=== PATIENT | male | born 1945 | race Caucasian/White ===

== ENCOUNTER 2017-11-24 08:05 | Inpatient (IN) | payer OTHER, MEDICARE ==
--- NOTE | 2017-11-24 07:16 | PDHPUP ---
History & Physical Update H&P update statement: This history and physical update is based on an assessment of the patient which was completed after admission or registration (within 24 hours), but prior to the surgery/procedure. H&P update: H&P reviewed & patient examined, no change in patient's condition since H&P completed
[~2017-11-24 08:05] MED LIST: ROPIVACAINE 0.2% 80 MG, EPINEPHrine 0.2 MG, KETOROLAC TROMETHAMINE 30 MG in SYRINGE 0 ML IU ONE; TRANEXAMIC ACID 3,000 MG in NS (SYRINGE) 50 ML IRR ONE
[2017-11-24] MEDS ORDERED: TRANEXAMIC ACID 3,000 MG/50 ML BAG IRR ONE (08:08)
[2017-11-24] MEDS ORDERED: DEXAMETHASONE 4 MG/ML VIAL IVP ONE (08:31)
[2017-11-24] MEDS ORDERED: FAMOTIDINE 20 MG TAB PO ONE (08:31)
[2017-11-24] MEDS ORDERED: ceFAZolin 2 GM/DEXTROSE 100 ML IV ONE (08:31)
[2017-11-24] MEDS ORDERED: ACETAMINOPHEN 325 MG TAB PO ONE (08:31)
[2017-11-24] MEDS ORDERED: LR 1,000 ML IV ONE (08:36)
[2017-11-24] MEDS ORDERED: MIDAZOLAM 2 MG/2 ML VIAL IVP ONE (09:44)
--- NOTE | 2017-11-24 09:44 | PDANEPAE ---
ANE History of Present Illness 72 yo for sim ANE Past Medical History - Cardiovascular History Hx Hypertension: No Hx Arrhythmias: No Hx Chest Pain: No Hx Coronary Artery / Peripheral Vascular Disease: No Hx CHF / Valvular Disease: No Hx Palpitations: No - Pulmonary History Hx COPD: No Hx Asthma/Reactive Airway Disease: No Hx Recent Upper Respiratory Infection: No Hx Oxygen in Use at Home: No Hx Sleep Apnea: No Sleep Apnea Screening Result - Last Documented: Negative Pulmonary History Comment: PNEUMONIA 3 YRS AGO - Neurologic History Hx Cerebrovascular Accident: No Hx Seizures: No Hx Dementia: No - Endocrine History Hx Diabetes: No - Renal History Hx Renal Disorders: No - Liver History Hx Hepatic Disorders: No - Neurological & Psychiatric Hx Hx Neurological and Psychiatric Disorders: No - Cancer History Hx Cancer: No Cancer History Comment: PROSTATE TXD W/RADIATION - GI History Hx Gastrointestinal Disorders: No - Other Health History Other Health History: NEG - Chronic Pain History Chronic Pain: Yes (R HIP PAIN) - Surgical History Prior Surgeries: L KNEE FX REPAIR. COLONOSCOPY ANE Review of Systems Review of Systems: - Exercise capacity METS (RN): 6 METS ANE Patient History - Allergies Allergies/Adverse Reactions: No Known Allergies Allergy (Verified 11/08/17 10:20) - Home Medications Home medications: home medication list seen and reviewed Home Medications: Aspirin [Aspirin 81mg (*)] 81 mg PO DAILY 01/24/15 [Last Taken 11/17/17] Rosuvastatin Calcium [Crestor 20mg (*)] 1 tab PO HS 01/24/15 [Last Taken ] [place]-3 Fatty Acids [Fish Oil 1000 mg (*)] 2,000 mg PO DAILY 11/08/17 [Last Taken 11/17/17] Naproxen Sodium [Aleve 220 MG (*)] 220 mg PO BID PRN 11/11/17 [Last Taken ] - NPO status NPO Status: no food or drink >8 hours NPO Since - Liquids (Date): 11/24/17 NPO Since - Solids (Date): 11/23/17 - Anes Hx Anes Hx: no prior problems - Smoking Hx Smoking Status: Former smoker - Family Anes Hx Family Hx Anesthesia Complications: NEG ANE Labs/Vital Signs - Vital Signs Blood Pressure: 134/79 Heart Rate: 51 Respiratory Rate: 16 O2 Sat (%): 96 Height: 5 ft 10 in Weight: 77.111 kg ANE Physical Exam - Airway Neck exam: FROM Mallampati Score: Class 2 - Pulmonary Pulmonary: no respiratory distress - Cardiovascular Cardiovascular: regular rate and rhythym - ASA Status ASA Status: II ANE Anesthesia Plan Anesthesia Plan: spinal
[2017-11-24] MEDS ORDERED: MIDAZOLAM 2 MG/2 ML VIAL ONE (09:55)
[2017-11-24] MEDS ORDERED: PROPOFOL/EMULSION 500 MG/50 ML BOTTLE IV ONE ×2 (09:57→11:01)
[2017-11-24] MEDS ORDERED: LIDOCAINE 2% 100 MG/5 ML SYR ONE (10:32)
[2017-11-24] MEDS ORDERED: PROMETHAZINE HCL 25 MG/ML INJ IVP PRN (11:23)
[2017-11-24] MEDS ORDERED: diphenhydrAMINE 25 MG CAP PO PRN (11:23)
[2017-11-24] MEDS ORDERED: TEMAZEPAM 15 MG CAP PO PRN (11:23)
[2017-11-24] MEDS ORDERED: CYCLOBENZAPRINE 10 MG TAB PO PRN (11:23)
[2017-11-24] MEDS ORDERED: BISACODYL 10 MG SUPP PR PRN (11:23)
[2017-11-24] MEDS ORDERED: oxyCODONE IR 5 MG TAB PO PRN (11:23)
[2017-11-24] MEDS ORDERED: DIPHENOXYLATE/ATROPINE LOMOTIL 1 TAB PO PRN (11:23)
[2017-11-24] MEDS ORDERED: METOCLOPRAMIDE 10 MG/2 ML VIAL IVP PRN (11:23)
[2017-11-24] MEDS ORDERED: ONDANSETRON 4 MG/2 ML VIAL IVP PRN ×2 (11:23→11:32)
[2017-11-24] MEDS ORDERED: ONDANSETRON DISINTEGRATING 4 MG TAB PO PRN (11:23)
[2017-11-24] MEDS ORDERED: LACTULOSE 20 GM/30 ML UDCUP PO PRN (11:23)
[2017-11-24] MEDS ORDERED: PROMETHAZINE HCL 25 MG SUPPR PR PRN (11:23)
[2017-11-24] MEDS ORDERED: POLYETHYLENE GLYCOL 3350 17 GM PKT PO PRN (11:23)
[2017-11-24] MEDS ORDERED: MAGNESIUM HYDROXIDE 30 ML UDCUP PO PRN (11:23)
--- NOTE | 2017-11-24 11:23 | POSTOPPROG ---
Post Op Note Date of Operation: 11/24/17 Surgeon: Rodrigo Denton Beam Warper: desiree denton Anesthesiologist: dr. bhagat Anesthesia: Spinal Pre-op Diagnosis: right hip OA Post-op Diagnosis: same Indication: right hip pain Procedure: R DUNCAN ant approach Findings: severe hip OA Inf/Abcess present in the surg proc area at time of surgery?: No EBL: 100-500
[2017-11-24] MEDS ORDERED: LR 1,000 ML IV SCH (11:30)
[2017-11-24] MEDS ORDERED: fentaNYL 100 MCG/2 ML INJ IVP PRN (11:32)
[2017-11-24] MEDS ORDERED: NALOXONE HCL 0.4 MG/ML INJ IVP PRN (11:32)
[2017-11-24] MEDS ORDERED: HYDROmorphONE/DILAUDID 1 MG/ML INJ IVP PRN (11:32)
--- NOTE | 2017-11-24 11:33 | POSTANESTH ---
Post Anesthetic Evaluation Cardiovascular Status: Normal, Stable Respiratory Status: Tx Decrease in SpO2 Level of Consciousness/Mental Status: Can Participate in Eval Pain Control: Adequate, Prn Tx Ordered Nausea/Vomiting Control: Adequate, Prn Tx Ordered Complications Possibly Related to Anesthesia: None Noted
[2017-11-24] MEDS: ACETAMINOPHEN 325 MG TAB PO SCH ×2 (13:26→17:58)
--- NOTE | 2017-11-24 13:42 | PDMN ---
Medical Necessity Medical necessity: [facility] IP only surgery; cpt 75862 R DUNCAN
[2017-11-24] MEDS: ceFAZolin 2 GM/DEXTROSE 100 ML IV SCH (17:58)
[2017-11-24] MEDS: FAMOTIDINE 20 MG TAB PO SCH (20:16)
[2017-11-24] MEDS: SENNOSIDES/DOCUSATE SODIUM TAB PO SCH (20:16)
[2017-11-24] MEDS: ASPIRIN 81 MG CHEWABLE TAB PO SCH (20:17)
[2017-11-24] MEDS ORDERED: ROSUVASTATIN CALCIUM 20 MG TAB PO SCH (21:00)
[2017-11-25] MEDS: ACETAMINOPHEN 325 MG TAB PO SCH ×2 (00:45→06:20)
[2017-11-25] MEDS: ceFAZolin 2 GM/DEXTROSE 100 ML IV SCH (00:46)
[2017-11-25 07:18] VITALS: BP 116/67
[2017-11-25] MEDS: ASPIRIN 81 MG CHEWABLE TAB PO SCH (09:15)
[2017-11-25] MEDS: SENNOSIDES/DOCUSATE SODIUM TAB PO SCH (09:15)
[2017-11-25] MEDS: FAMOTIDINE 20 MG TAB PO SCH (09:15)
--- NOTE | 2017-11-25 09:36 | SOAPPROG ---
SOAP Progress Note Assessment/Plan: Assessment: Patient is doing well POD 1 s/p R DUNCAN Pain management: pain is well controlled on oral pain meds. VTE ppx: recommend aspirin 81 mg BID for 4 weeks, cont KATHY and SCDs Anemia: level is expected initially postop. Asymptomatic. Continue to monitor D/c planning: d/c to home today pending release from PT Plan: 11/25/17 09:35 Subjective: Naldo is doing well, denies SOB, chest pain and N/V Objective: Vital Signs Temp Pulse Resp BP Pulse Ox 37.1 C 55 L 14 116/67 94 11/25/17 07:17 11/25/17 07:17 11/25/17 07:17 11/25/17 07:17 11/25/17 07:17 Laboratory Results 11/25/17 04:55 11/24/17 11/25/17 11/26/17 05:59 05:59 05:59 Intake Total 2450 Output Total 2200 200 Balance 250 -200 RLE: incision dressing is clean and dry, NVI, +pf/df ICD10 Worksheet Patient Problems: Problems Problem Status Onset Primary localized osteoarthritis of right hip Acute Hyponatremia Acute Pneumonia Acute
--- NOTE | 2017-11-25 10:56 | GDS ---
[f rep st] DISCHARGE SUMMARY ADMISSION DIAGNOSIS: Right hip osteoarthritis. DISCHARGE DIAGNOSIS: Right hip osteoarthritis. PROCEDURE: Right total hip arthroplasty. VTE PROPHYLAXIS: Recommend aspirin 81 mg twice daily for 4 weeks. BRIEF DESCRIPTION OF HOSPITAL STAY: Patient was admitted for an elective joint arthroplasty. The pa tejas tolerated the procedure well and has passed physical therapy. The patient was given appropriat e antibiotic prophylaxis and venous thromboembolism prophylaxis. The patient's pain was well control led on oral pain medication, patient was holding down food, and had urinated. Decision was made to d ischarge the patient. The patient was given post-operative prescriptions pre-operatively. PLAN: Follow up as scheduled in Dr. Juarez's office December 16 at 10 a.m. /[id number]/MODL
--- NOTE | 2017-11-25 11:06 | GOP ---
[f rep st] OPERATIVE REPORT DATE OF OPERATION: 11/24/2017 SURGEON: Brandy Juarez MD VENETIAN BLIND CLEANER AND REPAIRER: SEAN Adkins. ANESTHESIA: Spinal. PREOPERATIVE DIAGNOSIS: Right hip osteoarthritis. POSTOPERATIVE DIAGNOSIS: Right hip osteoarthritis. PROCEDURE PERFORMED: Right total hip arthroplasty with x-ray. FINDINGS: ESTIMATED BLOOD LOSS: 200 cc. INDICATIONS: The patient has progressively worsening arthritis of the hip which has failed medical m anagement. The patient understands the treatment options including continued non-operative care and has selected surgical intervention. The patient has decided to undergo total hip arthroplasty via th e direct anterior approach, understanding the risks of the procedure including, but not limited to, n eurovascular injury, infection, persistent pain, component wear and loosening, deep venous thrombosis , pulmonary embolism, limb length inequality, hip instability (including dislocation), and intra-oper ative fractures. DESCRIPTION OF PROCEDURE: After proper identification of the patient including verification and negar ing the surgical site, the patient was brought to the operating room and placed in the supine positio n. All bony prominences were well padded. Anesthesia was induced without complication and intraveno us prophylactic antibiotics were administered prior to skin incision. The operative leg was placed in the Trumpf Arch table extension and the well leg in a [place] leg ho lder. The patient was prepped and draped in the usual sterile fashion. The C-arm was draped for int ra-operative fluoroscopy to check acetabular position, femoral component position including leg lengt h and femoral offset. Attention was then drawn to surgical exposure of the hip. An incision was made with a #10 [place] r blade starting 3 cm lateral and 3 cm distal to the anterior superior iliac spine measuring 8-10 cm and coursing distally toward the greater trochanter. The skin and subcutaneous tissues were divided sharply down to the fascia chava. The fascia hcava was incised in line with the skin incision exposing the underlying tensor fascia chava muscle. The muscle was bluntly elevated from the fascia and the f irst extracapsular Cobra retractor was placed laterally at the junction of the superior femoral neck and greater trochanter. The lateral femoral circumflex vessels were identified, cauterized, and divi ded with the Aquamantys bipolar cautery. The deep investing fascia of the TFL was divided to allow p evan mobilization of the muscle preventing damage during the retraction. The reflected head of the rectus femoris muscle was elevated off the anterior hip capsule and a medial Cobra retractor was plac ed just proximal to the lesser trochanter. The anterior capsulotomy was made sharply from the superolateral acetabulum to the saddle junction of the superior femoral neck and greater trochanter, then coursing inferomedial towards the lesser troc hanter. The retractors were then placed in the intracapsular position for femoral neck osteotomy. C orresponding to pre-operative templating, the osteotomy was made with the oscillating saw carefully p rotecting the greater trochanter and soft tissues. The femoral head was removed from the acetabulum with a corkscrew and confirmed to be severely arthritic with exposed bone, deformity and osteophytes. Similar findings were confirmed in the acetabulum. The Arch table extension was then placed in 40 degrees external rotation. Attention was then drawn to the acetabular preparation. After placement of the anterior and posterio r Cobra retractors outside the labrum and intracapsular, the circumferential labrum was removed sharp ly. The foveal contents were then removed and hemostasis obtained with cautery. The first reamer selected was sized using the removed femoral head. Reaming began with medialization and then commenced in 2 mm increments at 45 degrees of abduction and 15 degrees of anteversion using fluoroscopic navigation. Reaming ceased 1 mm less than the definitive acetabular component and rogers esponded to the pre-operative templating. The final acetabular component was inserted using fluorosc opy to achieve proper orientation yielding excellent purchase and stability in the acetabulum. The f inal acetabular liner was then placed and its seating confirmed. Attention was then turned to the femur. The Arch table extension was placed in extension and adducti on, delivering the osteotomized femoral neck into the wound. A 2-pronged femoral elevator was placed at the calcar and another at the tip of the greater trochanter. The posterolateral capsule was rele ased with cautery allowing mobilization of the femur lateral and anterior for preparation. The exter nal rotators were visualized and preserved. A curette and rongeur were used to open the starting poi nt for broaching. Serial broaching started with the #0 broach and ended with the broach that exhibit ed excellent fit in the proximal femur. A change in pitch during mallet strikes was accompanied by t he inability to advance the broach any further. The trial reduction was performed and fluoroscopic n avigation was utilized to check limb length. Adjustments were made to equalize limb length according ly. After the final trials were accepted they were removed and the wound was copiously lavaged. The femo ral component was seated to the same depth as the final broach and the femoral head was impacted onto the clean trunnion. The hip was then reduced for the final time and once more fluoroscopy was used to check that limb length equality was achieved. The wound was irrigated and closed in layers, the fascia chava with 2-0 Quill, the subcutaneous tissue with 2-0 Quill, and the skin with Dermabond. Sterile dressings were applied. Final sharps and spon ge counts were accurate. The patient was then transferred to a hospital bed and brought to the [facility] room in stable condition. IMPLANTS: Accolade II size 7 at 127. Acetabular component is 58 mm Trident II. Liner is a Trident X3, 36 mm. Head is Biolox Delta 36 mm, -2.5. /[id number]/MODL
== END 2017-11-25 10:50 | disposition home or self-care (01) | DRG 470 ==
LOC: F3N 08:05
PROVIDERS: ADMIT Orthopaedic Surgery; ATTEND Orthopaedic Surgery
PROC: 0SR904Z Replacement of Right Hip Joint with Ceramic on Polyethylene Synthetic Substitute, Open Approach (ICD-10-PCS; principal; 2017-11-24 10:15)
DX: M16.11 Unilateral primary osteoarthritis, right hip (principal); Z87.891 Personal history of nicotine dependence; Z85.46 Personal history of malignant neoplasm of prostate
CPT/HCPCS: 97110-GP; 97116-GP; 97161-GP; G8978-GP-CI; G8979-GP-CI; G8980-GP-CI; J0171; J0690; J1100; J1885; J2001; J2250; J2704; J2795

== ENCOUNTER 2018-09-06 07:38 | Emergency (ER) | payer OTHER, MEDICARE ==
[2018-09-06] MEDS ORDERED: NS 1,000 ML IV ONE (07:52)
[2018-09-06] MEDS ORDERED: DEXAMETHASONE 10 MG/ML VIAL IVP ONE (07:52)
[2018-09-06] MEDS ORDERED: KETOROLAC 30 MG/1 ML SDV IVP ONE (07:52)
[2018-09-06] MEDS ORDERED: KETOROLAC 30 MG/1 ML SDV ONE (07:53)
[2018-09-06] MEDS ORDERED: DEXAMETHASONE 10 MG/ML VIAL ONE (07:53)
--- NOTE | 2018-09-06 07:57 | EDPHY ---
H & P Time Seen by Provider: 09/06/18 07:46 HPI/ROS: HPI Sore throat. 72-year-old, immunocompetent male, by private vehicle. This patient complains of a worsening sore throat ongoing for 3 days now. He describes worsening pain with swallowing. He states his voice has become hoarse because of the sore throat. He denies any difficulty breathing. He denies any stridor. ROS: Constitutional: No fever, no chills. No weakness. Eyes: No discharge. No changes in vision. ENT: As above. No nasal congestion or rhinorrhea. Respiratory: No cough. No shortness of breath. Cardiac: No chest pain, no palpitations. Gastrointestinal: No abdominal pain, no vomiting, no diarrhea. Musculoskeletal: No back pain. No neck pain. No myalgias or arthralgias. Skin: No rashes. Neurological: No headache. No focal weakness or altered sensation. Past medical history: Prostate cancer, hyperlipidemia, left knee surgery. Social history: Nonsmoker. No alcohol. Here by himself. Physical Exam: General Appearance: Alert, no distress. This patient is responding to questions appropriately and in full sentences. This patient appears well- hydrated and well-nourished. Eyes: Pupils equal and round no pallor or injection. No lid edema, erythema or injection. ENT, Mouth: Mucous membranes are moist. Diffuse pharyngeal erythema with mild edema involving the uvula and the pharyngeal arches. Scant exudates involving the posterior pharyngeal arches. No asymmetry suggestive of abscess. No stridor on auscultation of his neck. Some hoarseness to his voice. No significant cervical, submandibular, submental lymphadenopathy. Respiratory: There are no retractions, lungs are clear to auscultation with good air movement bilaterally. Cardiovascular: Regular rate and rhythm. No murmur. Neurological: Motor sensory function is grossly intact. Cranial nerves are normal. Gait is normal. Skin: Warm and dry, no rashes. Musculoskeletal: Neck is supple and nontender. No pain on flexion of his neck. Extremities are symmetrical. All joints range without pain or impingement. Psychiatric: No agitation. No depression. Database: EKG: Imaging: Soft tissue neck x-ray series: Unremarkable. No evidence of significant soft tissue swelling. Interpreted by me. Procedures: Emergency department course: Triage vital signs reviewed and are normal. IV was placed. He was placed on a monitor. He was started on IV normal saline with 500 cc to 1 L to be given over the next hour. Strep swab obtained by myself. He will initially be given 30 mg of IV Toradol and 10 mg of IV Decadron. He has no contraindications to NSAIDs. 9:00 a.m., the patient was re-evaluated, he is feeling better at this time. No stridor on auscultation of his neck. Normal upper airway sounds. Normal voice. Results of his x-rays, strep and mono screens were discussed with him. He feels comfortable going home at this time and I feel he is safe for discharge. Follow-up and return to emergency department precautions have been reviewed with him. All of his questions were answered. He was discharged from the emergency department in good condition. Differential Diagnosis: The differential diagnosis on this patient includes but is not limited to other viral pharyngitis, streptococcal pharyngitis. Retropharyngeal abscess, peritonsillar abscess, tracheitis, epiglottitis unlikely. This represents a partial list of diagnoses considered. These considerations are based on history , physical exam, past history, reassessment and diagnostic testing. Smoking Status: Former smoker Constitutional: Initial Vital Signs Temperature (C) 37 C 09/06/18 07:40 Heart Rate 70 09/06/18 07:40 Respiratory Rate 16 09/06/18 07:40 Blood Pressure 127/83 H 09/06/18 07:40 O2 Sat (%) 95 09/06/18 07:40 O2 Delivery Mode Room Air Allergies/Adverse Reactions: No Known Allergies Allergy (Verified 11/08/17 10:20) Home Medications: Medication Instructions Recorded Rosuvastatin Calcium [Crestor 20mg 1 tab PO HS 01/24/15 (*)] [place]-3 Fatty Acids [Fish Oil 1000 2,000 mg PO DAILY 11/08/17 mg (*)] Acetaminophen [Tylenol 325mg (*)] 650 mg PO Q6HRS tab 11/25/17 Aspirin [Aspirin 81mg (*)] 81 mg PO BID tab.chew 11/25/17 Cyclobenzaprine [Flexeril 10 MG 10 mg PO Q8HRS PRN tab 11/25/17 (*)] Polyethylene Glycol 3350 [Miralax 17 gm PO DAILY PRN pkt 11/25/17 17 gm (*)] Sennosides/Docusate Sodium 1 - 2 tab PO BID tab 11/25/17 [Senokot-S] celeCOXIB [Celebrex (*)] 200 mg PO DAILY cap 11/25/17 oxyCODONE IR [Oxycodone Ir (*)] 5 - 10 mg PO Q3HRS PRN tab 11/25/17 Hydrocodone/APAP 5/325 [[place] 1 - 2 tab PO Q4-6PRN PRN #7 tab 09/06/18 5/325 (*)] Medical Decision Making - Diagnostics Imaging Results: Imaging Impressions Soft Tissue Neck X-Ray 09/06/18 07:53 Impression: Normal epiglottis. Please see above. - Data Points Laboratory Results: 09/06/18 09/06/18 09/06/18 Unknown 08:00 08:00 Monoscreen NEGATIVE (NEGATIVE) Group A Strep Screen NEGATIVE (NEGATIVE) Group A Strep DNA Pending Medications Given: Discontinued Medications Dexamethasone (Decadron Injection) 10 mg IVP EDNOW ONE Stop: 09/06/18 07:53 Last Admin: 09/06/18 08:02 Dose: 10 mg Sodium Chloride (Ns) 1,000 mls @ 0 mls/hr IV ONCE ONE; Wide Open PRN Reason: Protocol Stop: 09/06/18 07:53 Last Admin: 09/06/18 08:01 Dose: 1,000 mls Ketorolac Tromethamine (Toradol) 30 mg IVP EDNOW ONE Stop: 09/06/18 07:53 Last Admin: 09/06/18 08:01 Dose: 30 mg Departure - Departure Disposition: Home, Routine, Self-Care Clinical Impression: Pharyngitis Condition: Good Instructions: Pharyngitis (ED) Additional Instructions: Read and follow provided instructions. Follow-up with your primary care physician in 1-2 days for re-evaluation. You can start taking ibuprofen tomorrow morning. Ibuprofen dosin mg every 6 hours with meals for the next 3 days only. Take only as needed for pain. Narcotic pain medication: 1-2 every 4-6 hours as needed for pain. Do not drive on this medication. Return to the emergency department for worsening sore throat, difficulty swallowing, stridor, difficulty breathing or other serious concerns. Referrals: Annemarie Finley MD [Primary Care Provider] - As per Instructions Prescriptions: Hydrocodone/APAP 5/325 [[place] 5/325 (*)] 1 - 2 tab PO Q4-6PRN PRN #7 tab PRN Reason: Pain, Moderate
[2018-09-06 09:13] VITALS: BP 120/65
== END 2018-09-06 09:13 | disposition home or self-care (01) ==
DX: J02.9 Acute pharyngitis, unspecified (principal); E86.9 Volume depletion, unspecified
CPT/HCPCS: 70360; 96374; 96375; 99284; J1100; J1885